=== PATIENT | male | born 1955 | race Caucasian/White ===

== ENCOUNTER 2017-07-07 13:31 | Emergency (ER) | payer OTHER ==
[~2017-07-07] VITALS: Ht 175.3 cm; Wt 98.7 kg
[~2017-07-07 13:31] MED LIST: ALPR-138 PO; ASPI81 PO; B COTAB3 PO; CARV6.25 PO; CO Q100C9 PO; LISI-357 PO; OTC NASAL SPRAY; SIMV20TA PO
[2017-07-07 13:33] VITALS: BP 136/64; PULSE 71; RESP 16; TEMP 98.4; O2SAT 97
[2017-07-07] MEDS ORDERED: SODIUM CHLOR 0.9% 1000 ML INJ 1,000 ML IV ONE (14:45)
[2017-07-07] MEDS ORDERED: MECLIZINE HCL 25 MG TAB PO ONE (14:45)
[2017-07-07] MEDS ORDERED: SODIUM CHLORIDE 0.9% FLUSH 10 ML FLUSH IVF PRN (14:45)
[2017-07-07 15:30] VITALS: BP_SYST 110; BP_SYST 112; BP_DIAS 65; BP_DIAS 70
--- NOTE | 2017-07-07 15:34 | PD ---
HPI Chief Complaint: Dizziness Time Seen by Provider: 14:32 Travel History International Travel<30 days: No Contact w/Intl Traveler<30days: No Traveled to known affect area: No History of Present Illness HPI This is a 61-year-old male who presents to the emergency department with dizziness described as lightheadedness like he is going to pass out that started after he bent over to fix his car. The symptoms are intermittent and only occur when he moves his head a certain way, moderate severity, with no associated chest discomfort, shortness of breath, numbness or weakness. He did not vomit and denies any headache. This is never happened to him before. PFSH Past Medical History Anxiety: Yes Depression: Yes Cancer: No Cardiac Catheterization: Yes Cardiomyopathy: Yes Cardiovascular Problems: Yes (HX PVC; HX HEART CATH 5 YEARS AGO) High Cholesterol: Yes Diabetes: No Diminished Hearing: No Endocrine: No Gastrointestinal Disorders: No Genitourinary: No Hepatitis: No Hiatal Hernia: No Hypertension: Yes Immune Disorder: No Musculoskeletal: No Neurologic: No Psychiatric: No Reproductive: No Respiratory: Yes (SLEEP APNEA) Immunizations Current: Yes Thyroid Disease: No ?: Not Past Surgical History Abdominal Surgery: Yes (RIGHT INGUINAL HERNIA REPAIR) Body Medical Devices: SCREW RIGHT KNEE Cardiac Surgery: Yes (HEART CATH) Other Surgery: Yes Social History Alcohol Use: Yes (OCCASIONAL BEER) Tobacco Use: No Substance Use: No Allergies-Medications (Allergen,Severity, Reaction): Coded Allergies: penicillin G (Verified Allergy, Severe, HIVES, 07/07/17) HIVES; MILD REACTION erythromycin base (Verified Allergy, Unknown, 07/07/17) Reported Meds & Prescriptions Reported Meds & Active Scripts Active Reported [Otc Nasal [place]] Simvastatin 20 Mg Tab 20 Mg PO HS Lisinopril 5 Mg Tab 5 Mg PO DAILY Co Q 10 (Coenzyme Q10) 100 Mg Cap 100 Mg PO DAILY B Complex (Vitamin B Complex) Tab 1 Cap PO DAILY Xanax (Alprazolam) 0.25 Mg Tab 0.25 Mg PO PRN Coreg (Carvedilol) 6.25 Mg Tab 12.5 Mg PO BID Aspirin 81 Mg Tab 81 Mg PO DAILY Review of Systems Except as stated in HPI: all other systems reviewed are Neg Physical Exam Narrative GENERAL:Well appearing, no acute distress SKIN: Focused skin assessment warm and dry. HEAD: Atraumatic. Normocephalic. EYES: Pupils equal and round. No injection or drainage. Some leftward horizontal nystagmus ENT: Moist mucous membranes NECK: Trachea midline. CARDIOVASCULAR: Regular rate and rhythm. No murmur appreciated. RESPIRATORY: Clear to auscultation. Breath sounds equal bilaterally. GASTROINTESTINAL: Abdomen soft, non-tender, nondistended. MUSCULOSKELETAL: No obvious deformities. NEUROLOGICAL: Awake and alert. No obvious cranial nerve deficits. No dysarthria or aphasia. No upper or lower extremity drift. No upper extremity ataxia. Visual neal intact. PSYCHIATRIC: Appropriate mood and affect; insight and judgment normal. Data Data Last Documented VS Vital Signs Date Time Temp Pulse Resp B/P (MAP) Pulse Ox O2 Delivery O2 Flow Rate FiO2 07/07/17 15:37 98 07/07/17 13:33 98.4 71 16 Orders Orders Electrocardiogram (07/07/17 14:45) Complete Blood Count With Diff (07/07/17 14:45) Comprehensive Metabolic Panel (07/07/17 14:45) Troponin I (07/07/17 14:45) Ecg Monitoring (07/07/17 14:45) Bilateral Bp Monitoring (07/07/17 14:45) Iv Access Insert/Monitor (07/07/17 14:45) Oximetry (07/07/17 14:45) Oxygen Administration (07/07/17 14:45) Sodium Chloride 0.9% Flush (Ns Flush) (07/07/17 14:45) Sodium Chlor 0.9% 1000 Ml Inj (Ns 1000 M (07/07/17 14:45) Meclizine (Antivert) (07/07/17 14:45) Labs Laboratory Tests Test 07/07/17 15:38 White Blood Count 7.6 TH/MM3 Red Blood Count 5.02 MIL/MM3 Hemoglobin 14.7 GM/DL Hematocrit 43.7 % Mean Corpuscular Volume 87.1 FL Mean Corpuscular Hemoglobin 29.2 PG Mean Corpuscular Hemoglobin Concent 33.5 % Red Cell Distribution Width 13.5 % Platelet Count 166 TH/MM3 Mean Platelet Volume 8.4 FL Neutrophils (%) (Auto) 77.2 % Lymphocytes (%) (Auto) 11.6 % Monocytes (%) (Auto) 7.3 % Eosinophils (%) (Auto) 3.4 % Basophils (%) (Auto) 0.5 % Neutrophils # (Auto) 5.8 TH/MM3 Lymphocytes # (Auto) 0.9 TH/MM3 Monocytes # (Auto) 0.6 TH/MM3 Eosinophils # (Auto) 0.3 TH/MM3 Basophils # (Auto) 0.0 TH/MM3 CBC Comment DIFF FINAL Differential Comment Blood Urea Nitrogen 18 MG/DL Creatinine 0.93 MG/DL Random Glucose 93 MG/DL Total Protein 6.8 GM/DL Albumin 3.7 GM/DL Calcium Level 8.8 MG/DL Alkaline Phosphatase 71 U/L Aspartate Amino Transf (AST/SGOT) 15 U/L Alanine Aminotransferase (ALT/SGPT) 28 U/L Total Bilirubin 1.0 MG/DL Sodium Level 139 MEQ/L Potassium Level 4.2 MEQ/L Chloride Level 107 MEQ/L Carbon Dioxide Level 25.2 MEQ/L Anion Gap 7 MEQ/L Estimat Glomerular Filtration Rate 82 ML/MIN Troponin I LESS THAN 0.02 NG/ML MDM Medical Decision Making Medical Screen Exam Complete: Yes Emergency Medical Condition: Yes Interpretation(s) Afebrile, no tachycardia, normotensive No leukocytosis Electrolytes are reassuring Troponin is normal EKG: Normal sinus rhythm, right bundle branch block, no ST changes Differential Diagnosis Dehydration, electrolyte abnormality, arrhythmia, valvular disease, peripheral vertigo Narrative Course This is a 61-year-old male who presents to the emergency department with dizziness that's been going on for 1 day. The dizziness seems positional. He has a normal neurologic exam. EKG is reassuring with a right bundle branch block but no evidence of arrhythmia. Electrolytes are all normal. I doubt there is life-threatening etiology of the patient's symptoms based on his reassuring exam and diagnostics. He was given meclizine and some IV fluids. He says he feels about the same. I think he's safe to follow-up with his primary care physician later this week regarding his symptoms. Diagnosis Primary Impression: Dizziness Patient Instructions: General Instructions Additional Instructions: If you develop severe chest pain, shortness of breath, sweating, lightheadedness , dizziness or difficulty breathing return to the emergency department immediately. Followup with your primary care physician in 2-3 days if your symptoms are not resolved. Med/Other Pt SpecificInfo: No Change to Meds Disposition: 01 DISCHARGE HOME Condition: Stable Mary Keyes MD Jul 07, 2017 15:34
[2017-07-07 15:37] VITALS: O2SAT 98
[2017-07-07 15:49] LABS: AUTOMATED NEUTROPHIL # 5.8 TH/MM3 (1.8-7.7); BASOPHIL % 0.5 % (0.0-2.0); EOSINOPHIL # 0.3 TH/MM3 (0-0.4); EOSINOPHIL % 3.4 % (0.0-4.0); HEMATOCRIT 43.7 % (39.0-51.0); HEMOGLOBIN 14.7 GM/DL (13.0-17.0); LYMPH % 11.6 % (9.0-44.0); LYMPHOCYTE # 0.9 TH/MM3 (1.0-4.8); MEAN CELL VOLUME 87.1 FL (80.0-100.0); MEAN CORPUSCULAR HEMOGLOBIN 29.2 PG (27.0-34.0); MEAN CORPUSCULAR HGB CONC 33.5 % (32.0-36.0); MEAN PLATELET VOLUME 8.4 FL (7.0-11.0); MONO % 7.3 % (0.0-8.0); MONOCYTE # 0.6 TH/MM3 (0-0.9); NEUT % 77.2 % (16.0-70.0); PLATELET COUNT 166 TH/MM3 (150-450); RED BLOOD COUNT 5.02 MIL/MM3 (4.50-5.90); RED CELL DISTRIBUTION WIDTH 13.5 % (11.6-17.2); WHITE BLOOD COUNT 7.6 TH/MM3 (4.0-11.0)
[2017-07-07 15:58] LABS: CHLORIDE 107 MEQ/L (98-107); SODIUM (NA) 139 MEQ/L (136-145)
[2017-07-07 16:02] LABS: ALBUMIN 3.7 GM/DL (3.4-5.0); BICARBONATE 25.2 MEQ/L (21.0-32.0); BLOOD UREA NITROGEN 18 MG/DL (7-18); CALCIUM 8.8 MG/DL (8.5-10.1); GLUCOSE,RANDOM 93 MG/DL (74-106)
[2017-07-07 16:05] LABS: ALT (GPT) 28 U/L (12-78); AST (GOT) 15 U/L (15-37)
[2017-07-07 16:06] LABS: CREATININE 0.93 MG/DL (0.60-1.30); GLOMERULAR FILTRATION RATE 82 ML/MIN (>89)
[2017-07-07 16:07] LABS: TOTAL PROTEIN 6.8 GM/DL (6.4-8.2)
[2017-07-07 16:08] LABS: ALKALINE PHOSPHATASE 71 U/L (45-117)
[2017-07-07 16:10] LABS: TROPONIN I LESS THAN 0.02 NG/ML (0.02-0.05)
[2017-07-07 16:45] VITALS: BP 102/61; PULSE 71; RESP 16; O2SAT 97
--- NOTE | 2017-07-08 12:42 | EKG ---
Date Performed: 07/07/2017 Time Performed: 14:52:47 PTAGE: 61 years EKG: Sinus rhythm RIGHT BUNDLE BRANCH BLOCK ABNORMAL ECG PREVIOUS TRACING : 09/25/2013 09.34 Since previous tracing, no significant change noted DOCTOR: Peter Gan Interpretating Date/Time 07/08/2017 12:40:19
== END 2017-07-07 16:48 | disposition home or self-care (01) ==
LOC: PHED 13:31
DX: R42 Dizziness and giddiness (principal); I42.9 Cardiomyopathy, unspecified; I10 Essential (primary) hypertension; R94.31 Abnormal electrocardiogram [ECG] [EKG]
CPT/HCPCS: 80053; 84484; 85025; 93005; 99284; J7030

== ENCOUNTER 2018-05-05 06:29 | Observation (INO) ==
[2018-05-05 06:38] VITALS: RESP 16
--- NOTE | 2018-05-05 06:49 | ED ---
HPI General Chief Complaint: Chest Pain Stated Complaint: chest pain Time Seen by Provider: 05/05/18 06:41 Source: patient Mode of arrival: ambulatory Limitations: no limitations History of Present Illness HPI narrative: 62-year-old male presents to the emergency department by private transportation for evaluation of upset of chest pain that awakened him from sleep at approximately 430 this morning. Patient states he went to bed feeling well. Patient does have history of hypertension dyslipidemia and prior history of tobaccoism. Patient states that pain was sharp and approximately 5 minutes in duration. Patient reportedly checked his blood pressure during this time and noted his heart rate to be 36 and on repeat 43. Patient did not note abnormal blood pressure. Patient is prescribed Coreg and a statin. Patient is also supposed to take an aspirin daily. Patient took no medications prior to arrival to the hospital and took no medication for her symptoms. No near syncope syncope diaphoresis dyspnea nausea and/or vomiting. No referred neck jaw back shoulder arm pain. No abdominal pain. Patient denies any known disease of the aorta. Patient denies any recent long distance travel protracted bedrest or surgical procedure. No history of clotting disorder. Patient is not diabetic. Patient had no lower externally pain or swelling. MD complaint: Reports chest pain STEMI Alert: No Onset (ago): hour(s) (5:00) Time: 04:30 Duration: now resolved Onset: during rest and awoke with symptoms Pain location: Reports substernal Severity: severe Quality: Reports sharp Pain radiation: Reports none Relieving factors: nothing Exacerbating factors: nothing Context: Denies recent illness, recent surgery, recent immobilization, recent travel, trauma/injury, new medications and history of DVT/PE Associated symptoms: Denies nausea, vomiting, diaphoresis, dyspnea, sense of impending doom, syncope, palpitations, fever and leg swelling Treatments prior to arrival chest pain: Reports none Related Data Home Medications Medication Instructions Recorded Confirmed alprazolam [Xanax] 0.125 mg PO DIRECTED PRN 05/05/18 05/05/18 aspirin [Aspir-81] 81 mg PO DAILY 05/05/18 05/05/18 carvedilol 12.5 mg PO BID 05/05/18 05/05/18 cholecalciferol (vitamin D3) 2,000 unit PO DAILY 05/05/18 05/05/18 [Vitamin D3] coenzyme Q10 [CoQ-10] 100 mg PO DAILY 05/05/18 05/05/18 levothyroxine 25 mcg PO HS 05/05/18 05/05/18 simvastatin 10 mg PO DAILY 05/05/18 05/05/18 Allergies Allergy/AdvReac Type Severity Reaction Status Date / Time penicillin G Allergy Severe HIVES Verified 05/05/18 06:39 erythromycin base Allergy Unknown Hives Verified 05/05/18 06:39 Review of Systems ROS: all other systems reviewed are negative PMFSH History History Provided By: Patient (Hypertension dyslipidemia cardiac catheterization RBBB tobacco use) and Medical Record Medical History Medical History Anxiety (Acute) Chronic chest pain (Acute) High cholesterol (Acute) Hx of sebaceous cyst (Acute) Hypertension (Acute) Hypothyroidism (Acute) Light-headedness (Acute) Muscle cramps at night (Acute) Sleep apnea (Acute) Surgical History Surgical History History of knee surgery (Acute) Hx of inguinal hernia repair (Acute) Social History Social History Substance History: No History of Abuse Second Hand Smoke Exposure: No Smoking Status: Former smoker Tobacco Type: Cigarettes How Often Do You Have a Drink Containing Alcohol: Never Recent Travel in [place] within the Last 8 Weeks: No Recent Out of Country Travel within the Last 8 Weeks: No Exam Narrative Exam Narrative: GENERAL: Well-nourished, well-developed patient. SKIN: Focused skin assessment warm/dry. HEAD: Normocephalic. EYES: No scleral icterus. No injection or drainage. NECK: Supple, trachea midline. No JVD or lymphadenopathy. CARDIOVASCULAR: Regular rate and rhythm without murmurs, gallops, or rubs. RESPIRATORY: Breath sounds equal bilaterally. No accessory muscle use. GASTROINTESTINAL: Abdomen soft, non-tender, nondistended. MUSCULOSKELETAL: No cyanosis, or edema. BACK: Nontender without obvious deformity. No CVA tenderness. Course Initial Documented Vital Signs Temperature 98.2 F 05/05/18 06:36 Pulse Rate 68 05/05/18 06:36 Respiratory Rate 16 05/05/18 06:36 Blood Pressure 151/91 H 05/05/18 06:36 Pulse Oximetry 98 05/05/18 06:36 Last Documented Vital Signs Temperature 98.0 F 05/05/18 06:40 Pulse Rate 66 05/05/18 06:40 Respiratory Rate 16 05/05/18 06:40 Blood Pressure 145/88 H 05/05/18 06:40 Pulse Oximetry 98 05/05/18 06:40 Medical Decision Making MDM Narrative Medical decision making narrative: 62-year-old male presents to the emergency department transportation for evaluation of episode of sharp retrosternal chest pain approximately 430 this morning that awakened him from sleep that was approximately 5 minutes in duration associated with slow heart rate. No prior history of pericardia. Patient does have history of hypertension dyslipidemia and right bundle branch block quadrant. Patient states he has had cardiac catheterization approximately 8 years ago with a wheeled is not insignificant coronary vessel disease possibly 20% plaquing noted. Patient has had subsequent stress tests that have reportedly been normal. Patient states he is asymptomatic at this time. Patient had no associated symptoms of shortness of breath sweats nausea vomiting near syncope or syncope. Patient did not take any medication prior to arrival to the emergency department did not take aspirin. Patient is prescribed carvedilol and a statin. Patient no longer smokes cigarettes times 2 months. Patient placed on playground monitor IV access obtained specimens collections of resulting EKG shows sinus rhythm with no acute ST elevation injury pattern is identified to have right bundle branch block which patient reports is pre-existing. Patient is asymptomatic at this time discomfort/pain 0/10 in intensity. Patient administered aspirin 162 mg by mouth Patient signed out to me at 7 AM awaiting lab work, planning for the chest pain center for the patient. Lab work was fairly unremarkable with negative troponins. Chest x-ray was negative. EKG did not show any signs of acute ST changes. And at this point, patient had been given aspirin by Dr. Vasquez, appears comfortable with stable vital signs in the ER. Case is discussed with Dr. Arana for admission. Medical Screen Exam Complete: Yes Emergency Medical Condition: Yes Differential Diagnosis Differential Diagnosis: Chest pain, esophageal spasm, vasovagal near syncope, ACS, MT, aortic dissection, PE Medical Records Medical records reviewed: Yes I reviewed the patient's medical records. Lab Data Lab results reviewed: Yes I reviewed the patient's lab results. Result diagrams: 05/05/18 06:45 05/05/18 06:45 Lab Results 05/05/18 05/05/18 05/05/18 Range/Units 06:45 06:45 06:45 CBC w Diff Auto diff final WBC 6.9 (4.0-11.0) th/mm3 RBC 5.01 (4.50-5.90) mil/mm3 Hgb 15.0 (13.0-17.0) gm/dL Hct 45.0 (39.0-51.0) % MCV 89.8 (80.0-100.0) fL MCH 29.9 (27.0-34.0) pg MCHC 33.3 (32.0-36.0) % RDW 13.8 (11.6-17.2) % Plt Count 152 (150-450) th/mm3 MPV 8.6 (7.0-11.0) fL Neut % (Auto) 70.0 (16.0-70.0) % Lymph % (Auto) 16.6 (9.0-44.0) % [place] % (Auto) 7.6 (0.0-8.0) % Eos % (Auto) 4.8 H (0.0-4.0) % Baso % (Auto) 1.0 (0.0-2.0) % Neut # (Auto) 4.9 (1.8-7.7) th/mm3 Lymph # (Auto) 1.1 (1.0-4.8) th/mm3 [place] # (Auto) 0.5 (0.0-0.9) th/mm3 Eos # (Auto) 0.3 (0.0-0.4) th/mm3 Baso # (Auto) 0.1 (0.0-0.2) th/mm3 WBC Differential . Differential Comment . Sodium 140 (136-145) meq/L Potassium 3.7 (3.5-5.1) meq/L Chloride 108 H (98-107) meq/L Carbon Dioxide 25.7 (21.0-32.0) meq/L Anion Gap 6 (5-15) meq/L BUN 18 (7-18) mg/dL Creatinine 1.20 (0.60-1.30) mg/dL Estimated GFR 61 L (>89) mL/min Random Glucose 116 H (74-106) mg/dL Calcium 8.3 L (8.5-10.1) mg/dL Magnesium 2.2 (1.5-2.5) mg/dL Total Bilirubin 0.8 (0.2-1.0) mg/dL AST 17 (15-37) U/L ALT 30 (12-78) U/L Alkaline Phosphatase 69 (45-117) U/L Troponin I Less than 0.02 L (0.02-0.05) ng/mL B-Natriuretic Peptide 48 (0-100) pg/mL Total Protein 6.9 (6.4-8.2) g/dL Albumin 3.7 (3.4-5.0) g/dL Imaging Data Attestation: I personally reviewed and interpreted this imaging study as follows : Radiologist's impression: Chest X-Ray 05/05/18 06:41 CONCLUSION: 1. No acute cardiopulmonary disease. Discharge Plan Discharge Disposition Patient Disposition: 30 Still Patient Discharge Condition Condition: Stable Discharge Details Anticipated Discharge Date: 05/05/18 Diagnosis: Chest pain Physicians Team ED Provider: Julia Vasquez Primary Care Provider: Bashir Romano Rxs /Orders / Referrals /Forms Prescriptions: No Action carvedilol 12.5 mg Tablet 12.5 mg PO BID RF: 0 simvastatin 10 mg Tablet 10 mg PO DAILY RF: 0 levothyroxine 25 mcg Capsule 25 mcg PO HS RF: 0 aspirin [Aspir-81] 81 mg Tablet,Delayed Release (Dr/Ec) 81 mg PO DAILY RF: 0 alprazolam [Xanax] 0.25 mg Tablet 0.125 mg PO DIRECTED PRN (Reason: Anxiety) RF: 0 coenzyme Q10 [CoQ-10] 100 mg Capsule 100 mg PO DAILY RF: 0 cholecalciferol (vitamin D3) [Vitamin D3] 2,000 unit Capsule 2,000 unit PO DAILY RF: 0 Discharge Instructions Patient Printed Instructions: Chest Pain (ED) Status ED Status: With Doctor
[2018-05-05 07:00] LABS: Baso # (Auto) 0.1 th/mm3 (0.0-0.2); Eos # (Auto) 0.3 th/mm3 (0.0-0.4); Eos % (Auto) 4.8 % (0.0-4.0); Lymph # (Auto) 1.1 th/mm3 (1.0-4.8); Lymph % (Auto) 16.6 % (9.0-44.0); Mean Corpuscular HGB Conc 33.3 % (32.0-36.0); Mean Corpuscular Hemoglobin 29.9 pg (27.0-34.0); Mean Corpuscular Volume 89.8 fL (80.0-100.0); Mean Platelet Volume 8.6 fL (7.0-11.0); Mono # (Auto) 0.5 th/mm3 (0.0-0.9); Mono % (Auto) 7.6 % (0.0-8.0); Neut # (Auto) 4.9 th/mm3 (1.8-7.7); Platelet Count 152 th/mm3 (150-450); Red Blood Count 5.01 mil/mm3 (4.50-5.90); Red Cell Distribution Width 13.8 % (11.6-17.2); White Blood Count 6.9 th/mm3 (4.0-11.0)
--- NOTE | 2018-05-05 07:06 | XR ---
EXAM DATE: 05/05/2018 6:41 AM EDT AGE/SEX: 62 years / Male INDICATIONS: Substerna chest pain. CLINICAL DATA: This is the patient's initial encounter. Patient reports that signs and symptoms have been present for 1 day and indicates a pain score of 7/10. MEDICAL/SURGICAL HISTORY: Hypertension. Hypothyroidism. Sleep apnea. Former smoker. . Cardiac cath. COMPARISON: . FINDINGS: No significant new focal pleural or parenchymal opacities. The cardiomediastinal contours are unremar kable. Osseous structures are intact. CONCLUSION: 1. No acute cardiopulmonary disease. Electronically signed by: Daniel Adrian MD 05/05/2018 7:05 AM EDT
[2018-05-05 07:07] LABS: Chloride 108 meq/L (98-107); Potassium 3.7 meq/L (3.5-5.1); Sodium 140 meq/L (136-145)
[2018-05-05 07:10] LABS: Calcium 8.3 mg/dL (8.5-10.1)
[2018-05-05 07:11] LABS: Albumin 3.7 g/dL (3.4-5.0); Anion Gap 6 meq/L (5-15); Blood Urea Nitrogen 18 mg/dL (7-18); Carbon Dioxide 25.7 meq/L (21.0-32.0); Glucose,Random 116 mg/dL (74-106); Magnesium 2.2 mg/dL (1.5-2.5)
[2018-05-05 07:14] LABS: Alanine Aminotransferase 30 U/L (12-78); Aspartate Aminotransferase 17 U/L (15-37); Glomerular Filtration Rate 61 mL/min (>89)
[2018-05-05 07:16] LABS: Total Protein 6.9 g/dL (6.4-8.2)
[2018-05-05 07:17] LABS: Alkaline Phosphatase 69 U/L (45-117)
[2018-05-05] MEDS ORDERED: Acetaminophen 500 MG Tablet PO PRN (08:33)
[2018-05-05] MEDS ORDERED: Sod Chloride 0.9% Inj 1,000 ML IV.CONT SCH (08:45)
[2018-05-05 10:01] LABS: Creatine Kinase 117 U/L (39-308)
[2018-05-05] MEDS ORDERED: ALPRAZolam 0.25 MG Tablet PO PRN (10:17)
--- NOTE | 2018-05-05 10:22 | P.HP ---
History of Present Illness Primary Care Physician: Bashir Romano MD Chief Complaint: chest pain History of Present Illness: This is a 62-year-old male patient with a known medical history of hypertension , hyperlipidemia and hypothyroidism who presented to the ED with complaints of chest pain. Patient states that around 430 this morning he was awakened from sleep secondary to midsternal chest pain. Patient characterizes the pain is sharp in nature, lasted roughly 5 minutes and then went away on its own. He states he woke up and walked around and the pain got better. He denies any radiation of the pain up his neck or arm or back. The pain was rated a 5 out of 10 at its worst on pain scale. Patient denies any associated shortness of breath, nausea or sweating with the pain. He denies ever having this type of pain before. He denies any recent illness including fever, chills, cough, shortness of breath, dumping, nausea, vomiting, diarrhea or dysuria. Primary care is Dr. Romano. No changes to his medications. Patient does have a transportation driver, Dr. Gaytan, last seen roughly a year ago. Stress test was done roughly a year ago as well as an echocardiogram which was reportedly negative. Patient did undergo a cardiac cath roughly 10 years ago with transportation driver, at that time there was no stent placed. He has been continued on carvedilol as well as statin. He does have a history of tobaccoism, quit 3 months ago. - Diagnosis (1) Chest pain Review of Systems All other systems reviewed negative except as stated in HPI PMFSH - History History Provided By: Patient - Medical History Medical History: Medical History (Last Reviewed 05/05/18 @ 10:15 by Nat Hook) Anxiety Chronic chest pain High cholesterol Hx of sebaceous cyst Muscle cramps at night Hypertension Hypothyroidism Light-headedness Sleep apnea - Surgical History Surgical History: Surgical History (Last Reviewed 05/05/18 @ 10:15 by Nat Hook) History of knee surgery Hx of inguinal hernia repair - Family History Family History: Family History (Last Updated 05/05/18 @ 10:38 by Nat Hook) Other No pertinent family history - Social History I have reviewed the patient's Social History: Yes - Tobacco History Second Hand Smoke Exposure: No Tobacco Use In Past 30 Days: No Smoking Status: Former smoker Tobacco Type: Cigarettes - Alcohol History How Often Do You Have a Drink Containing Alcohol: Never - Substance Use History Substance History: No History of Abuse - Travel History Recent Travel in the [place] Within the Last 8 Weeks: No Recent Travel Out of the Country Within the Last 8 Weeks: No - Immunization History Tetanus Immunization: >5 Years Medications and Allergies Active Medications: Active Medications Acetaminophen (Tylenol) 500 mg PO Q4H PRN PRN Reason: HEADACHE Sodium Chloride (Ns Inj) 1,000 mls @ 100 mls/hr IV.CONT .Q10H OFELIA Ondansetron HCl (Zofran Inj) 4 mg IV.PUSH Q6H PRN PRN Reason: NAUSEA Sodium Chloride (Ns Flush) 2 ml IV.FLUSH UNSCH PRN PRN Reason: FLUSH AFTER USING IV ACCESS Last Admin: 05/05/18 07:06 Dose: 2 ml Sodium Chloride (Ns Flush) 2 ml IV.FLUSH BID OFELIA Sodium Chloride (Ns Flush) 2 ml IV.FLUSH PRN PRN PRN Reason: FLUSH AFTER USING IV ACCESS Allergies Allergy/AdvReac Type Severity Reaction Status Date / Time penicillin G Allergy Severe HIVES Verified 05/05/18 06:39 erythromycin base Allergy Unknown Hives Verified 05/05/18 06:39 Home Medications Medication Instructions Recorded Confirmed Type alprazolam [Xanax] 0.125 mg PO DIRECTED PRN 05/05/18 05/05/18 History aspirin [Aspir-81] 81 mg PO DAILY 05/05/18 05/05/18 History carvedilol 12.5 mg PO BID 05/05/18 05/05/18 History cholecalciferol (vitamin D3) 2,000 unit PO DAILY 05/05/18 05/05/18 History [Vitamin D3] coenzyme Q10 [CoQ-10] 100 mg PO DAILY 05/05/18 05/05/18 History levothyroxine 25 mcg PO HS 05/05/18 05/05/18 History simvastatin 10 mg PO DAILY 05/05/18 05/05/18 History Exam Vital signs: Vital Signs 05/05/18 06:36 05/05/18 06:40 05/05/18 08:45 Temperature 98.2 F 98.0 F Pulse Rate 74 66 59 L Respiratory Rate 18 16 Blood Pressure 137/93 H 145/88 H Pulse Oximetry 96 98 Intake & Output 05/04/18 05/05/18 05/05/18 18:59 06:59 18:59 Weight 111 kg Narrative: GENERAL: Well-developed, well-nourished patient in NAD. SKIN: Warm and dry. No rash. HEAD: Normocephalic. Atraumatic. EYES: Pupils equal and round. No scleral icterus. No injection or drainage. ENT: No nasal bleeding or discharge. Mucous membranes pink and moist. NECK: Supple. Trachea midline. CARDIOVASCULAR: Regular rate and rhythm. S1, S2 noted. No murmur appreciated. No chest pain to palpation. RESPIRATORY: No accessory muscle use. Clear to auscultation. Breath sounds equal bilaterally. GASTROINTESTINAL: Abdomen soft, non-tender, nondistended. Normoactive bowel sounds x4. MUSCULOSKELETAL: No obvious deformities. Extremities without clubbing, cyanosis , or edema. NEUROLOGICAL: Awake and alert. No obvious cranial nerve deficits. Motor grossly within normal limits. 5/5 muscle strength in bilateral upper and lower extremities. Normal speech. PSYCHIATRIC: Appropriate mood and affect; insight and judgment normal. Results - Labs CBC & Chem 7: 05/05/18 06:45 05/05/18 06:45 Labs: Laboratory Results - last 24 hr 05/05/18 05/05/18 05/05/18 06:45 06:45 06:45 CBC w Diff Auto diff final WBC 6.9 RBC 5.01 Hgb 15.0 Hct 45.0 MCV 89.8 MCH 29.9 MCHC 33.3 RDW 13.8 Plt Count 152 MPV 8.6 Neut % (Auto) 70.0 Lymph % (Auto) 16.6 [place] % (Auto) 7.6 Eos % (Auto) 4.8 H Baso % (Auto) 1.0 Neut # (Auto) 4.9 Lymph # (Auto) 1.1 [place] # (Auto) 0.5 Eos # (Auto) 0.3 Baso # (Auto) 0.1 WBC Differential . Differential Comment . Sodium 140 Potassium 3.7 Chloride 108 H Carbon Dioxide 25.7 Anion Gap 6 BUN 18 Creatinine 1.20 Estimated GFR 61 L Random Glucose 116 H Calcium 8.3 L Magnesium 2.2 Total Bilirubin 0.8 AST 17 ALT 30 Alkaline Phosphatase 69 Total Creatine Kinase Troponin I Less than 0.02 L B-Natriuretic Peptide 48 Total Protein 6.9 Albumin 3.7 10/16/18 09:33 CBC w Diff WBC RBC Hgb Hct MCV MCH MCHC RDW Plt Count MPV Neut % (Auto) Lymph % (Auto) [place] % (Auto) Eos % (Auto) Baso % (Auto) Neut # (Auto) Lymph # (Auto) [place] # (Auto) Eos # (Auto) Baso # (Auto) WBC Differential Differential Comment Sodium Potassium Chloride Carbon Dioxide Anion Gap BUN Creatinine Estimated GFR Random Glucose Calcium Magnesium Total Bilirubin AST ALT Alkaline Phosphatase Total Creatine Kinase 117 Troponin I Less than 0.02 L B-Natriuretic Peptide Total Protein Albumin - Imaging Impressions Chest X-Ray 05/05/18 06:41 CONCLUSION: 1. No acute cardiopulmonary disease. Caprini VTE Risk Assessment Caprini VTE Risk Assessment: Moderate/High Risk (score >= 2) Caprini Risk Assessment Model: Point Value = 1 Point Value = 2 Point Value = 3 Point Value = 5 Age 41-60 Minor surgery BMI > 25 kg/m2 Swollen legs Varicose veins or History of unexplained or recurrent spontaneous Oral contraceptives or hormone replacement Sepsis (< 1 month) Serious lung disease, including pneumonia (< 1 month) Abnormal pulmonary function Acute myocardial infarction Congestive heart failure (< 1 month) History of inflammatory bowel disease Medical patient at bed rest Age 61-74 Arthroscopic surgery Major open surgery (> 45 min) Laparoscopic surgery (> 45 min) Malignancy Confined to bed (> 72 hours) Immobilizing plaster cast Central venous access Age >= 75 History of VTE Family history of VTE Factor V Leiden Prothrombin [id number] Lupus anticoagulant Anticardiolipin antibodies Elevated serum homocysteine Heparin-induced thrombocytopenia Other congenital or acquired thrombophilia Stroke (< 1 month) Elective arthroplasty Hip, pelvis, or leg fracture Acute spinal cord injury (< 1 month) Prophylaxis Regimen: Total Risk Factor Score Risk Level Prophylaxis Regimen 0-1 Low Early ambulation 2 Moderate Order ONE of the following: *Sequential Compression Device (SCD) *Heparin 5000 units SQ BID 3-4 Higher Order ONE of the following medications: *Heparin 5000 units SQ TID *Enoxaparin/Lovenox 40 mg SQ daily (WT < 150 kg, CrCl > 30 mL/min) *Enoxaparin/Lovenox 30 mg SQ daily (WT < 150 kg, CrCl > 10-29 mL/min) *Enoxaparin/Lovenox 30 mg SQ BID (WT < 150 kg, CrCl > 30 mL/min) AND/OR *Sequential Compression Device (SCD) 5 or more Highest Order ONE of the following medications: *Heparin 5000 units SQ TID (Preferred with Epidurals) *Enoxaparin/Lovenox 40 mg SQ daily (WT < 150 kg, CrCl > 30 mL/min) *Enoxaparin/Lovenox 30 mg SQ daily (WT < 150 kg, CrCl > 10-29 mL/min) *Enoxaparin/Lovenox 30 mg SQ BID (WT < 150 kg, CrCl > 30 mL/min) AND *Sequential Compression Device (SCD) Assessment and Plan - Assessment (1) Chest pain Code(s): R07.9 - Chest pain, unspecified Status: Acute - Plan This is a 62-year-old male patient with Chest pain History of CAD -Patient presented with chest pain upon presentation. -Serial EKGs and serial troponins have been ordered for ruling out ACS purposes. Initial 2 troponin flat. Awaiting third enzyme. Follow trend. -EKG reviewed, controlled heart rate, no ST changes to indicate any ischemia, does show right bundle branch block. -Patient was given aspirin. Patient will be continued on cardiac telemetry, monitor for any arrhythmias. -CBC and BMP reviewed, essentially remarkable. -Chest x-ray reviewed, no acute cardiopulmonary disease noted. -If ACS ruled out with serial EKGs and serial troponins, patient will be discharged home to follow-up with transportation driver, Dr. Gaytan. Patient states that he has close contact with Dr. Gaytan, actually has made an appointment to see him this week. Patient should be advised to undergo a cardiac nuclear stress test in the near future. Chest pain has resolved. No further episodes since presentation. History of hypertension History of hyperlipidemia -Continue to monitor blood pressure trends. Continue cardiac telemetry. Continue home medications. History of anxiety: Continue on home Xanax as needed. [employer] database has been reviewed. DVT prophylaxis: SCDs. Heparin. Discharge Planning: Awaiting third enzyme. If negative will discharge home to follow-up with transportation driver. (1) Chest pain Qualifiers: Chest pain type: precordial pain Qualified Code(s): R07.2 - Precordial pain
[2018-05-05 13:01] VITALS: BP 128/75; PULSE 57; TEMP 96.9; O2SAT 96
[2018-05-05 13:56] LABS: Creatine Kinase 117 U/L (39-308)
--- NOTE | 2018-05-05 15:58 | ECG ---
Date Performed: 05/05/2018 Time Performed: 06:39:19 PTAGE: 62 years EKG: Sinus rhythm INDETERMINATE AXIS RIGHT BUNDLE BRANCH BLOCK Since previous tracing, no significant change noted ABN ORMAL ECG PREVIOUS TRACING : 03/12/2018 20.40 DOCTOR: Dion Leon Interpretating Date/Time 05/05/2018 15:57:22
[2018-05-05] MEDS ORDERED: Carvedilol 12.5 MG Tablet PO SCH (21:00)
[2018-05-06] MEDS ORDERED: Non-Formulary Drug (Coenzyme Q10 [Coq-10] 100 MG) PO SCH (09:00)
--- NOTE | 2018-05-07 08:04 | ECG ---
Date Performed: 05/05/2018 Time Performed: 09:35:05 PTAGE: 62 years EKG: SINUS BRADYCARDIA RIGHT BUNDLE BRANCH BLOCK ABNORMAL ECG Compared to PREVIOUS TRACING , the sinus rate is slower. PREVIOUS TRACIN05/05/2018 06.39 DOCTOR: Eleno Camacho Interpretating Date/Time 05/07/2018 08:03:15
--- NOTE | 2018-05-07 08:04 | ECG ---
Date Performed: 05/05/2018 Time Performed: 13:05:41 PTAGE: 62 years EKG: Sinus rhythm INDETERMINATE AXIS RIGHT BUNDLE BRANCH BLOCK ABNORMAL ECG Compared to PREVIOUS TRACING , the sinus rhythm is slightly faster. PREVIOUS TRACIN05/05/2018 09.3 5 DOCTOR: Eleno Camacho Interpretating Date/Time 05/07/2018 08:03:32
== END 2018-05-05 15:22 | disposition home or self-care (01) ==
LOC: PHEDA 06:29 → PHED 06:29 → PH3 08:12
PROVIDERS: ADMIT Hospitalist; ATTEND Hospitalist